=== PATIENT | male | born 1930 | race Caucasian/White ===

== ENCOUNTER 2016-08-13 15:36 | Emergency (ER) | payer MEDICARE, OTHER ==
[~2016-08-13 15:36] MED LIST: ADULT LOW DOSE81 M1 PO; ARICEPT5 M1 PO; ASPERDRINK81 MG PO; DAILY MULTIPLE1 EAC2 PO; FLOMAX0.4 MG PO; LOPID600 MG PO; NORCO 5-325 TA1 EACH PO; PERCOCET 5-3251 EACH PO; PREDNISONE5 MG PO; SPIRIVA18 MC1 INH; SYNTHROID50 MCG PO; SYNTHROID75 MC1 PO; TOPROL XL25 M1 PO; ZESTRIL20 MG PO; ZOCOR40 M1 PO; ZOFRAN4 M2 PO
[2016-08-13] MEDS ORDERED: KETOCONAZOLE15 GM TP (15:51)
[2016-08-13] MEDS ORDERED: SYNTHROID88 MC1 PO (15:53)
[2016-08-13 17:04] LABS: WHITE BLOOD COUNT 5.7 tho/cmm (4.0-10.0)
[2016-08-13 17:13] LABS: C-REACTIVE PROTEIN 1.3 mg/dl (0-0.9); CREATININE 1.71 mg/dl (0.60-1.30); eGFR VALUE FOR BLACK 41 mL/Min
[2016-08-13 17:41] LABS: PROCALCITONIN <0.05 ng/ml (0.05-0.09)
[2016-08-13] MEDS ORDERED: PENICILLIN V P500 M1 PO (18:31)
[2017-01-21] MEDS ORDERED: LASIX20 M1 PO (15:51)
[2017-01-21] MEDS ORDERED: PREDNISONE10 M1 PO (15:56)
== END 2016-08-13 18:50 ==
LOC: EDMED 15:36
PROVIDERS: Emergency Medicine
DX: L03.114 Cellulitis of left upper limb (principal); A46 Erysipelas; R60.9 Edema, unspecified